=== PATIENT | female | born 1960 | race American Indian/Alaskan Native ===

== ENCOUNTER 2020-09-27 09:56 | Outpatient (CLI) | payer BC ==
--- NOTE | 2020-09-27 11:00 | XRay Report ---
BILATERAL HIP RADIOGRAPHS 3 VIEWS INDICATION / CLINICAL INFORMATION: Right hip pain COMPARISON: 06/30/2020 FINDINGS: BONES / JOINT(S): Patient has a left total hip arthroplasty which appears intact. No loosening is see n. There is moderate degenerative change in the right hip which appears similar to the prior radiogra phs. There is joint space narrowing and osteophyte formation. No fracture or dislocation is seen. SOFT TISSUES: No significant abnormality. 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 Signer Name: Markie Leija MD Signed: 09/27/2020 10:55 AM Workstation Name: [id number]
== END 2020-09-27 09:57 | disposition home or self-care (01) ==
LOC: XRAY 09:56
PROVIDERS: ATTEND Orthopaedic Surgery
DX: M16.11 Unilateral primary osteoarthritis, right hip (principal); M25.751 Osteophyte, right hip; Z95.828 Presence of other vascular implants and grafts
CPT/HCPCS: 73521